=== PATIENT | male | born 1950 | race Caucasian/White ===

== ENCOUNTER 2017-08-13 09:20 | Emergency (ER) | payer OTHER ==
[~2017-08-13] VITALS: Ht 182.9 cm; Wt 99.8 kg
[~2017-08-13 09:20] MED LIST: INTESTINEX680 MG PO; MIRALAX12 EA; MIRALAX12 EA PO; OMEPRAZOLE20 MG PO; PERCOCET 5/3251 TAB PO; PRILOSEC10 MG; XARELTO15 MG PO
== END 2017-08-13 13:42 | disposition home or self-care (01) ==
LOC: ER 09:20
DX: R53.81 Other malaise (principal); R20.8 Other disturbances of skin sensation; F41.8 Other specified anxiety disorders

== ENCOUNTER 2017-10-28 19:37 | Emergency (ER) | payer OTHER ==
[~2017-10-28] VITALS: Ht 182.9 cm; Wt 98.9 kg
== END 2017-10-28 22:14 | disposition home or self-care (01) ==
LOC: ER 19:37
DX: K92.1 Melena (principal)

== ENCOUNTER 2017-12-03 08:43 | Day surgery (SDC) | payer OTHER | END 2017-12-03 13:50 | disposition home or self-care (01) | LOC: AMB-ENDOS 08:43 | DX: C19 Malignant neoplasm of rectosigmoid junction (principal); K64.8 Other hemorrhoids ==

== ENCOUNTER 2019-11-05 08:48 | Outpatient (CLI) | payer OTHER | END 2019-11-05 08:54 | disposition home or self-care (01) | LOC: LAB 08:48 | PROVIDERS: ATTEND Surgery | DX: C19 Malignant neoplasm of rectosigmoid junction (principal); K92.1 Melena; K59.09 Other constipation; Z03.818 Encounter for observation for suspected exposure to other biological agents ruled out; Z20.828 Contact with and (suspected) exposure to other viral communicable diseases ==

== ENCOUNTER 2019-11-10 07:56 | Day surgery (SDC) | payer OTHER | END 2019-11-10 12:30 | disposition home or self-care (01) | LOC: AMB-ENDOS 07:56 → ADM 14:30 → AMB-ENDOS 14:30 | PROVIDERS: ATTEND Surgery | DX: K62.89 Other specified diseases of anus and rectum (principal); K64.8 Other hemorrhoids ==

== ENCOUNTER 2024-02-21 06:07 | Inpatient (IN) | payer OTHER ==
[~2024-02-21] VITALS: Ht 182.9 cm; Wt 87.1 kg
[2024-02-21] MEDS ORDERED: AMIODARONE HCL200 MG PO (06:33)
[2024-02-21] MEDS ORDERED: XARELTO20 MG PO (06:33)
[2024-02-21] MEDS ORDERED: CARVEDILOL3.125 M1 PO (06:33)
[2024-02-21] MEDS ORDERED: CARVEDILOL6.25 M1 PO (06:33)
[2024-02-21] MEDS ORDERED: LOSARTAN POTASS25 MG PO (06:33)
[2024-02-21] MEDS ORDERED: ATORVASTATIN CA20 MG PO (06:33)
[2024-02-21] MEDS ORDERED: NABUMETONE500 MG PO (06:34)
--- NOTE | 2024-02-21 06:34 | NUR ---
SE RECIBE PTE ALERTA Y ORIENTADO X3 EN AMBULANCIA ACOMPANADO POR FAMILIAR QUIEN REFIERE PTE MADISON ESTADO EVACUANDO DE COLOR DIANE Y CON MUY NAIN OLOR WISAM 3 GUERRERO APROX. SE OBSERVA CANALIZACION EN BRAZO DERECHO CON ANGIO #18, EL CUAL ESTA PATENTE, TULIO DE EDEMA Y ERITEMA, RECIBIENDO 0.9%NSS 250ML BAJANDO FULL DRIP. SE MIDEN SV Y BP RESULTA SER 70/50 MANUAL, SE COLOCA EN FRANKLIN #13 Y SE CONECTA A MONITOR CARDIACO.
[2024-02-21] MEDS ORDERED: 0.9 % SODIUM CHLORIDE 1,000 ML IV STA (06:44)
[2024-02-21] MEDS ORDERED: FAMOtidine 10 MG/ML (4ML VIAL) IV PUSH STA (06:45)
--- NOTE | 2024-02-21 07:34 | NUR ---
SE ORIENTA A PACIENTE SOBRE TRATAMIENTO MEDICO Y REFIERE ENTENDER. SE COLECTAN MUESTRAS DE LABORATORIO BAJO MEDIDAS ASEPTICAS. PACIENTE CON CANALIZACION DE AMBULANCIA EN ANTEBRAZO DERECHO PATENTE TULIO DE EDEMA Y ERITEMA. SE ADMINISTRAN MEDICAMENTOS JESSIE ORDEN MEDICA. SE NOTIFICA CT PENDIENTE.
[2024-02-21 08:00] LABS: HEMATOCRIT 23.7 % (39.0-48.0); MEAN CORPUSCULAR HGB CONC 33.8 g/dl (32.0-36.0); PLATELET COUNT 321 K/uL (150-450); RED BLOOD COUNT 2.55 M/uL (4.00-6.00); RED CELL DISTRIBUTION WIDTH 14.4 % (11.5-14.5)
[2024-02-21 08:12] LABS: ALBUMIN 2.1 gm/dL (3.4-5.0); BILIRUBIN TOTAL 0.51 mg/dL (0.3-1.2); CALCIUM 7.8 mg/dL (8.5-10.1); CREATININE SERUM 0.97 mg/dL (0.70-1.30); GFR 75.86; GLOBULINA 3.4 G/DL (2.4-3.5); POTASSIUM 4.82 mEq/L (3.5-5.1); TOTAL PROTEIN 5.5 gm/dL (6.4-8.2)
[2024-02-21 08:27] LABS: INR 1.31; PARTIAL THROMBOPLASTIN TIME 25.6 SECONDS (22.0-34.0)
[2024-02-21 08:29] LABS: MEAN CORPUSCULAR HEMOGLOBIN 31.3 pg (27.00-32.0)
[2024-02-21] MEDS ORDERED: PROTONIX IV40 MG IV (09:51)
--- NOTE | 2024-02-21 13:34 | NUR ---
SE EDUCA A PACIENTE SOBRE ORDEN DE TRANSFUNDIR DOS UNIDADES DE PRBC FRACCIONADAS. PACIENTE FIRMA CONSENTIMIENTO DE TRANSFUSION. SE REQUISAN DOS UNIDADES DE PRBC FRACCIONADAS Y SE LLEVA REQUISICION A LABORATORIO.
[2024-02-21 13:48] LABS: HEMATOCRIT 25.2 % (39.0-48.0); MEAN CELL VOLUME 92.9 fL (80.0-100.00); MEAN CORPUSCULAR HEMOGLOBIN 30.9 pg (27.00-32.0); MEAN CORPUSCULAR HGB CONC 33.2 g/dl (32.0-36.0); PLATELET COUNT 351 K/uL (150-450); RED BLOOD COUNT 2.71 M/uL (4.00-6.00); RED CELL DISTRIBUTION WIDTH 14.1 % (11.5-14.5)
[2024-02-21 14:08] LABS: HEMOGLOBIN 8.4 g/dL (13-16.00)
--- NOTE | 2024-02-21 14:26 | NUR ---
SE RECIBE A PTE EN EL AREA DE CRIICO SE CONECTA A MONITOR CARDIACO Y OXIMETRIA CONTINUA. CANALIZADO EN MANO DERECHA CON ANGIO 22 Y 20. TIENE BAJANDO 0.9NSS BAJANDO A 200ML/HR. AL MOMENTO PTE ALERTA Y ORIENTADO X3 RN AUGUSTIN LE HBAI REQUISADO YA BAILEY UNIDADES DE EARL PENDIENTE QUE LLAMEN DE LABORATORIO.
[2024-02-21] MEDS ORDERED: AMIODARONE HCL 200 MG TABLET PO SCH (16:26)
[2024-02-21] MEDS ORDERED: PANTOPRAZOLE SODIUM 40 MG/VIAL VIAL IV STA (16:27)
[2024-02-21] MEDS ORDERED: RINGERS SOLUTION,LACTATED 1,000 ML IV SCH (16:45)
[2024-02-21] MEDS ORDERED: CARVEDILOL 6.25 MG TABLET PO SCH (17:00)
[2024-02-21] MEDS ORDERED: SUCRALFATE 1 G TABLET PO SCH (17:00)
[2024-02-21] MEDS ORDERED: AA 4.25%/CAL/LYTES/DEXT 5% 1,000 ML PERIFERAL SCH (17:00)
[2024-02-21 20:49] LABS: PH,URINE 5.5 (5.0-8.0); URINE APPEARANCE Clear; URINE BACTERIA 8.8 uL (0.0-1933); URINE BILIRRUBIN Negative (NEGATIVE); URINE BLOOD Negative; URINE COLOR Yellow; URINE EPITHELIAL CELLS 2.4 uL (0.0-38.8); URINE GLUCOSE Negative (NEGATIVE); URINE KETONE Negative (NEGATIVE); URINE LEUKOCYTE Negative; URINE NITRATE Negative; URINE PROTEIN Negative (NEGATIVE); URINE UROBILINOGEN 0.2 E.U./dl
[2024-02-21 20:58] LABS: URINE RBC 0.6 uL (0.0-20.8)
[2024-02-21] MEDS ORDERED: PANTOPRAZOLE SODIUM 40 MG/VIAL VIAL IV SCH (21:00)
[2024-02-21] MEDS ORDERED: CIPROFLOXACIN IN 5 % DEXTROSE 200 ML IV SCH (21:26)
[2024-02-21] MEDS ORDERED: METRONIDAZOLE/SODIUM CHLORIDE 100 ML IV SCH (21:26)
[2024-02-21 21:40] VITALS: BP 143/74; O2SAT 97
[2024-02-22 00:15] VITALS: BP 122/68; O2SAT 100
[2024-02-22 08:38] VITALS: BP 149/82; O2SAT 97
[2024-02-22] MEDS ORDERED: AMIODARONE HCL 200 MG TABLET PO SCH (09:00)
[2024-02-22] MEDS ORDERED: levoFLOXacin IN DEXTROSE 5 % 5 MG/ML PIGGYBAG IV STA (10:15)
[2024-02-22] MEDS ORDERED: ENALAPRILAT DIHYDRATE 1.25 MG/ML VIAL IV PRN (13:45)
[2024-02-22 16:34] VITALS: BP 139/76
[2024-02-22] MEDS ORDERED: BENZONATATE 100 MG CAPSULE PO PRN (18:30)
[2024-02-23 02:35] VITALS: BP 127/73; O2SAT 96
[2024-02-23 03:47] LABS: HEMATOCRIT 27.2 % (39.0-48.0); HEMOGLOBIN 9.4 g/dL (13-16.00); MEAN CELL VOLUME 90.9 fL (80.0-100.00); MEAN CORPUSCULAR HEMOGLOBIN 31.5 pg (27.00-32.0); MEAN CORPUSCULAR HGB CONC 34.6 g/dl (32.0-36.0); PLATELET COUNT 293 K/uL (150-450); RED BLOOD COUNT 2.99 M/uL (4.00-6.00); RED CELL DISTRIBUTION WIDTH 14.4 % (11.5-14.5)
[2024-02-23 04:19] LABS: ALBUMIN 2.3 gm/dL (3.4-5.0); BILIRUBIN TOTAL 0.74 mg/dL (0.3-1.2); CALCIUM 8.3 mg/dL (8.5-10.1); CREATININE SERUM 0.94 mg/dL (0.70-1.30); GFR 78.67; GLOBULINA 3.1 G/DL (2.4-3.5); MAGNESIUM 2.3 mg/dL (1.8-2.4); PHOSPHOROUS 4.7 mg/dL (2.5-4.9); POTASSIUM 4.52 mEq/L (3.5-5.1); TOTAL PROTEIN 5.4 gm/dL (6.4-8.2)
[2024-02-23 08:13] VITALS: BP 126/69; O2SAT 94
[2024-02-23] MEDS ORDERED: levoFLOXacin IN DEXTROSE 5 % 5 MG/ML PIGGYBAG IV SCH (09:00)
[2024-02-23 17:17] VITALS: BP 121/80
[2024-02-24 04:48] VITALS: BP 118/68; O2SAT 93
[2024-02-24 07:02] LABS: HEMATOCRIT 25.7 % (39.0-48.0); MEAN CELL VOLUME 91.5 fL (80.0-100.00); MEAN CORPUSCULAR HEMOGLOBIN 31.9 pg (27.00-32.0); MEAN CORPUSCULAR HGB CONC 34.9 g/dl (32.0-36.0); PLATELET COUNT 294 K/uL (150-450); RED BLOOD COUNT 2.81 M/uL (4.00-6.00); RED CELL DISTRIBUTION WIDTH 14.3 % (11.5-14.5)
[2024-02-24 07:07] LABS: INR 1.1; PARTIAL THROMBOPLASTIN TIME 25.9 SECONDS (22.0-34.0); PROTHROMBIN TIME 11.9 SECONDS (9.0-11.5)
[2024-02-24 07:46] LABS: ALBUMIN 2.3 gm/dL (3.4-5.0); BILIRUBIN TOTAL 0.49 mg/dL (0.3-1.2); BILIRUBIN,CONJUGATED 0.17 mg/dL (0.0-0.2); BILIRUBIN,UNCONJUGATED 0.32 mg/dL (0.0-0.6); CALCIUM 7.7 mg/dL (8.5-10.1); CHOL HDL RATIO 2.7 (0-5.0); CREATININE SERUM 0.82 mg/dL (0.70-1.30); GFR 92.09; MAGNESIUM 2.1 mg/dL (1.8-2.4); POTASSIUM 3.96 mEq/L (3.5-5.1); TOTAL PROTEIN 5.3 gm/dL (6.4-8.2)
[2024-02-24 10:12] VITALS: BP 125/76; O2SAT 98
[2024-02-24] MEDS ORDERED: AMINO ACIDS/PROTEIN HYDROLYS 30 ML BLIST.PACK PO SCH (13:00)
[2024-02-24 17:51] VITALS: BP 145/73
[2024-02-24 20:03] LABS: UREA CLEARANCE 52.8 ML/MIN
[2024-02-25 01:07] VITALS: BP 161/84; O2SAT 98
[2024-02-25 01:13] VITALS: BP 161/84; O2SAT 99
[2024-02-25 07:12] LABS: ALBUMIN 3.1 gm/dL (3.4-5.0); BILIRUBIN TOTAL 0.52 mg/dL (0.3-1.2); CREATININE SERUM 0.8 mg/dL (0.70-1.30); GFR 94.76; GLOBULINA 3.4 G/DL (2.4-3.5); POTASSIUM 4.22 mEq/L (3.5-5.1); TOTAL PROTEIN 6.5 gm/dL (6.4-8.2)
[2024-02-25 09:34] VITALS: BP 135/86
[2024-02-25 12:46] LABS: HEMATOCRIT 24.6 % (39.0-48.0); MEAN CELL VOLUME 92.1 fL (80.0-100.00); PLATELET COUNT 146 K/uL (150-450); RED BLOOD COUNT 2.67 M/uL (4.00-6.00); RED CELL DISTRIBUTION WIDTH 15.1 % (11.5-14.5)
[2024-02-25 13:17] LABS: HEMOGLOBIN 8.6 g/dL (13-16.00); MEAN CORPUSCULAR HEMOGLOBIN 32.2 pg (27.00-32.0)
[2024-02-25 16:56] VITALS: BP 132/80; O2SAT 97
[2024-02-25 18:48] LABS: HEMATOCRIT 34.4 % (39.0-48.0); HEMOGLOBIN 11.7 g/dL (13-16.00); MEAN CELL VOLUME 90.4 fL (80.0-100.00); MEAN CORPUSCULAR HEMOGLOBIN 30.9 pg (27.00-32.0); MEAN CORPUSCULAR HGB CONC 34.1 g/dl (32.0-36.0); PLATELET COUNT 357 K/uL (150-450); RED CELL DISTRIBUTION WIDTH 14.2 % (11.5-14.5)
[2024-02-26 01:41] VITALS: BP 159/83; O2SAT 94
[2024-02-26 05:13] LABS: ALBUMIN 2.5 gm/dL (3.4-5.0); BILIRUBIN TOTAL 0.8 mg/dL (0.3-1.2); CREATININE SERUM 0.8 mg/dL (0.70-1.30); GFR 94.76; GLOBULINA 3.5 G/DL (2.4-3.5); POTASSIUM 3.81 mEq/L (3.5-5.1)
[2024-02-26 05:24] LABS: HEMATOCRIT 34.9 % (39.0-48.0); HEMOGLOBIN 12.2 g/dL (13-16.00); MEAN CELL VOLUME 90.8 fL (80.0-100.00); MEAN CORPUSCULAR HEMOGLOBIN 31.8 pg (27.00-32.0); PLATELET COUNT 358 K/uL (150-450); RED BLOOD COUNT 3.85 M/uL (4.00-6.00); RED CELL DISTRIBUTION WIDTH 14.1 % (11.5-14.5)
[2024-02-26 09:52] VITALS: BP 145/90; O2SAT 98
[2024-02-26] MEDS ORDERED: PEG3350/SOD SULF,BICARB,CL/KCL 4,000 ML GALLON PO SCH (13:00)
[2024-02-26 16:49] VITALS: BP 152/85; O2SAT 96
[2024-02-27 02:23] VITALS: BP 160/85; O2SAT 98
[2024-02-27 06:56] LABS: HEMATOCRIT 36.8 % (39.0-48.0); HEMOGLOBIN 12.6 g/dL (13-16.00); MEAN CELL VOLUME 91.2 fL (80.0-100.00); MEAN CORPUSCULAR HEMOGLOBIN 31.3 pg (27.00-32.0); MEAN CORPUSCULAR HGB CONC 34.3 g/dl (32.0-36.0); PLATELET COUNT 374 K/uL (150-450); RED BLOOD COUNT 4.03 M/uL (4.00-6.00); RED CELL DISTRIBUTION WIDTH 14.1 % (11.5-14.5)
[2024-02-27 07:16] LABS: CALCIUM 8.3 mg/dL (8.5-10.1); CREATININE SERUM 0.82 mg/dL (0.70-1.30); GFR 92.09; POTASSIUM 3.78 mEq/L (3.5-5.1)
[2024-02-27 09:19] VITALS: BP 147/83; O2SAT 100
[2024-02-27] MEDS ORDERED: fentaNYL CITRATE 50 MCG/ML AMPUL IV ONE (10:30)
[2024-02-27] MEDS ORDERED: MIDAZOLAM HCL 2 MG/2 ML VIAL IV ONE ×2 (10:30→10:45)
[2024-02-27] MEDS ORDERED: DIPHENHYDRAMINE HCL 50 MG/ML VIAL 1ML IV NR (11:00)
[2024-02-27] MEDS ORDERED: ELIQUIS5 MG PO (16:58)
[2024-02-27 18:20] VITALS: BP 170/98; O2SAT 95
== END 2024-02-27 20:05 | disposition home or self-care (01) | DRG 379 ==
LOC: ER 06:07 → SEC-K 17:50 → MEDI 17:55
PROVIDERS: Emergency Medicine; Internal Medicine; ADMIT Internal Medicine; ATTEND Internal Medicine
PROC: 30233N1 Transfusion of Nonautologous Red Blood Cells into Peripheral Vein, Percutaneous Approach (ICD-10-PCS; 2024-02-21)
PROC: 0DJD8ZZ Inspection of Lower Intestinal Tract, Via Natural or Artificial Opening Endoscopic (ICD-10-PCS; principal; 2024-02-27)
PROC: BW20YZZ Computerized Tomography (CT Scan) of Abdomen using Other Contrast (ICD-10-PCS; 2024-02-27)
DX: K62.5 Hemorrhage of anus and rectum (principal); D64.9 Anemia, unspecified; K57.90 Diverticulosis of intestine, part unspecified, without perforation or abscess without bleeding